=== PATIENT | female | born 1960 | race Caucasian/White ===

== ENCOUNTER 2023-08-25 07:35 | Outpatient (CLI) | payer OTHER, SELFPAY | END 2023-08-25 07:36 | disposition home or self-care (01) | LOC: NFLDREF 09-06 11:43 | PROVIDERS: PCP Internal Medicine; Referring Provider Internal Medicine; Visit Provider Internal Medicine | DX: R44.8 Other symptoms and signs involving general sensations and perceptions (principal); R19.7 Diarrhea, unspecified; E78.5 Hyperlipidemia, unspecified; Z86.2 Personal history of diseases of the blood and blood-forming organs and certain disorders involving the immune mechanism | CPT/HCPCS: 80061; 82947; 84443; 86364 ==

== ENCOUNTER 2023-09-25 11:45 | Outpatient (CLI) | payer OTHER, SELFPAY | END 2023-09-25 11:46 | disposition home or self-care (01) | LOC: NFLDREF 11:46 | PROVIDERS: PCP Internal Medicine; Visit Provider Advanced Practice Midwife | DX: N39.0 Urinary tract infection, site not specified (principal) | CPT/HCPCS: 87086; 87186 ==

== ENCOUNTER 2023-10-11 13:11 | Outpatient (CLI) | payer OTHER, SELFPAY | END 2023-10-11 13:12 | disposition home or self-care (01) | PROVIDERS: PCP Internal Medicine; Visit Provider Advanced Practice Midwife | DX: N39.0 Urinary tract infection, site not specified (principal) | CPT/HCPCS: 87086 ==

== ENCOUNTER 2023-11-15 12:00 | Outpatient (CLI) | payer OTHER, SELFPAY | END 2023-11-15 12:01 | disposition home or self-care (01) | LOC: NFLDREF 11-16 05:15 | PROVIDERS: PCP Internal Medicine; Referring Provider Internal Medicine; Visit Provider Advanced Practice Midwife | DX: K92.1 Melena (principal) | CPT/HCPCS: 87086 ==

== ENCOUNTER 2023-12-08 11:56 | Outpatient (CLI) | payer OTHER, SELFPAY | END 2023-12-08 11:57 | disposition home or self-care (01) | LOC: NFLDREF 12-26 09:21 | PROVIDERS: PCP Internal Medicine; Referring Provider Internal Medicine; Visit Provider Internal Medicine | DX: Z87.19 Personal history of other diseases of the digestive system (principal) | CPT/HCPCS: 82728 ==

== ENCOUNTER 2023-12-22 15:32 | Outpatient (CLI) | payer OTHER, SELFPAY | END 2023-12-22 15:33 | disposition home or self-care (01) | LOC: NFLDREF 12-25 15:49 | PROVIDERS: PCP Internal Medicine; Referring Provider Internal Medicine; Visit Provider Advanced Practice Midwife | DX: D64.9 Anemia, unspecified (principal) | CPT/HCPCS: 82728 ==

== ENCOUNTER 2024-01-10 15:37 | Outpatient (CLI) | payer OTHER, SELFPAY | END 2024-01-10 15:38 | disposition home or self-care (01) | LOC: NFLDREF 01-11 07:51 | PROVIDERS: PCP Internal Medicine; Referring Provider Internal Medicine; Visit Provider Internal Medicine | DX: D50.9 Iron deficiency anemia, unspecified (principal) | CPT/HCPCS: 82728 ==

== ENCOUNTER 2024-02-01 14:30 | Outpatient (RCR) | payer OTHER, SELFPAY ==
--- NOTE | 2024-01-16 10:47 | URNOTE ---
Prior auth is not required for iron sucrose ([id number]) per R.
[2024-01-18 13:37] VITALS: BP 130/72; PULSE 92; RESP 26; TEMP 36.3; O2SAT 97
[2024-01-18] MEDS: IRON SUCROSE COMPLEX 200 MG in 0.9 % SODIUM CHLORIDE 100 ml 100 ML 440 MG IVPB (13:44)
[2024-01-18 14:40] VITALS: BP 112/64; PULSE 73; RESP 16; TEMP 36.7; O2SAT 95
[2024-01-22 14:36] VITALS: BP 134/76; PULSE 78; RESP 16; TEMP 36.7; O2SAT 98
[2024-01-22] MEDS: IRON SUCROSE COMPLEX 200 MG in 0.9 % SODIUM CHLORIDE 100 ml 100 ML 440 MG IVPB (14:55)
[2024-01-22 15:22] VITALS: BP 101/65; PULSE 69; RESP 14; TEMP 36.1; O2SAT 95
[2024-01-25 15:11] VITALS: BP 111/73; PULSE 82; RESP 16; TEMP 36.2; O2SAT 96
[2024-01-25] MEDS: SODIUM CHLORIDE 0.9 % (FLUSH) 10 ML SYRINGE IVF (15:30)
[2024-01-25] MEDS: 0.9 % SODIUM CHLORIDE 250 ml IV (15:30)
[2024-01-25] MEDS: IRON SUCROSE COMPLEX 200 MG in 0.9 % SODIUM CHLORIDE 100 ml 100 ML 220 MG IVPB (15:30)
[2024-01-25 16:08] VITALS: BP 109/67; PULSE 73; RESP 18; O2SAT 95
[2024-01-25 16:43] VITALS: BP 117/81; PULSE 82; RESP 16; TEMP 36.1; O2SAT 98
[2024-01-29 14:35] VITALS: BP 104/68; PULSE 69; RESP 16; TEMP 36.2; O2SAT 95
[2024-01-29] MEDS: 0.9 % SODIUM CHLORIDE 250 ml IV (14:48)
[2024-01-29] MEDS: SODIUM CHLORIDE 0.9 % (FLUSH) 10 ML SYRINGE IVF (14:48)
[2024-01-29] MEDS: IRON SUCROSE COMPLEX 200 MG in 0.9 % SODIUM CHLORIDE 100 ml 100 ML 220 MG IVPB (14:48)
[2024-02-01 14:45] VITALS: BP 110/70; PULSE 88; RESP 16; TEMP 36.3; O2SAT 96
[2024-02-01] MEDS: 0.9 % SODIUM CHLORIDE 250 ml IV (15:10)
[2024-02-01] MEDS: IRON SUCROSE COMPLEX 200 MG in 0.9 % SODIUM CHLORIDE 100 ml 100 ML 440 MG IVPB (15:11)
[2024-02-01 15:46] VITALS: BP 110/68; PULSE 71; RESP 14; O2SAT 98
[2024-02-01 16:18] VITALS: BP 113/68; PULSE 89; RESP 14; TEMP 36.8; O2SAT 94
== END 2024-07-16 23:59 | disposition home or self-care (01) ==
LOC: CCIC 14:30
PROVIDERS: PCP Internal Medicine; Referring Provider Internal Medicine; Visit Provider Clinical Nurse Specialist
DX: D50.9 Iron deficiency anemia, unspecified (principal)
CPT/HCPCS: 96365; 96374; J1756; J7050

== ENCOUNTER 2024-02-14 12:09 | Outpatient (CLI) | payer OTHER, SELFPAY | END 2024-02-14 12:10 | disposition home or self-care (01) | LOC: NFLDREF 02-15 09:32 | PROVIDERS: PCP Internal Medicine; Referring Provider Internal Medicine; Visit Provider Internal Medicine | DX: Z87.19 Personal history of other diseases of the digestive system (principal) | CPT/HCPCS: 82728 ==

== ENCOUNTER 2024-06-03 11:52 | Outpatient (CLI) | payer OTHER, SELFPAY | END 2024-06-03 11:53 | disposition home or self-care (01) | LOC: NFLDREF 06-06 05:26 | PROVIDERS: PCP Internal Medicine; Referring Provider Internal Medicine; Visit Provider Internal Medicine | DX: R53.83 Other fatigue (principal); M81.0 Age-related osteoporosis without current pathological fracture | CPT/HCPCS: 82306; 82728 ==

== ENCOUNTER 2024-10-11 12:09 | Outpatient (CLI) | payer OTHER, SELFPAY | END 2024-10-11 12:10 | disposition home or self-care (01) | LOC: NFLDREF 10-15 02:29 | PROVIDERS: PCP Internal Medicine; Referring Provider Internal Medicine; Visit Provider Internal Medicine | DX: R06.02 Shortness of breath (principal); Z87.19 Personal history of other diseases of the digestive system; Z86.2 Personal history of diseases of the blood and blood-forming organs and certain disorders involving the immune mechanism | CPT/HCPCS: 82728 ==

== ENCOUNTER 2024-11-27 15:09 | Outpatient (CLI) | payer OTHER, SELFPAY | END 2024-11-27 15:10 | disposition home or self-care (01) | LOC: NFLDREF 12-03 07:41 | PROVIDERS: PCP Internal Medicine; Referring Provider Internal Medicine; Visit Provider Advanced Practice Midwife | DX: R30.0 Dysuria (principal) | CPT/HCPCS: 87086 ==

== ENCOUNTER 2024-11-28 12:35 | Outpatient (CLI) | payer OTHER, SELFPAY ==
[2024-11-28 15:56] LABS: Bacterial Vaginosis* Negative (Negative); Candida glab/krus NOT DETECTED (No Detected); Candida species DETECTED (No Detected); Trichomonas vaginalis NOT DETECTED (No Detected)
== END 2024-11-28 12:36 | disposition home or self-care (01) ==
LOC: NFLDREF 12:36
PROVIDERS: PCP Internal Medicine; Visit Provider Advanced Practice Midwife
DX: R30.0 Dysuria (principal); B37.31 Acute candidiasis of vulva and vagina
CPT/HCPCS: 81513; 87481; 87661